=== PATIENT | female | born 1955 | race African-American/Black ===

== ENCOUNTER 2018-07-19 05:49 | Inpatient (IN) | payer OTHER ==
[~2018-07-19] VITALS: Ht 170.2 cm; Wt 98.6 kg
[2018-07-19] VITALS (7 sets, daily range): BP systolic 134–155; BP diastolic 82–100
--- NOTE | ~2018-07-19 | 2DMMODE ---
[facility] [address] [place] [address] 2 D/M-MODE ECHOCARDIOGRAM Name: BRIGHT XIE Room #: 213-P [facility] [place] ..#: [id number] Admission: 07/19/18 Attend Phys: Torrey Watkins, Discharge: Date of : 59 Date of Service: 07/19/18 1601 Report #: [id number] THIS REPORT FOR: //name// APPROVED REPORT Study performed: 07/19/2018 13:06:16 EXAM: Comprehensive 2D, Doppler, and color-flow Echocardiogram Patient Location: Bedside Room #: 213 Status: routine BSA: 2.04 HR: 57 bpm BP: 141/91 mmHg Rhythm: NSR Other Information Study Quality: Adequate Indications Hypertension, elevated troponin, dizzy. 2D Dimensions RVDd: 30.45 mm IVSd: 15.22 (7-11mm) LVOT Diam: 21.87 (18-24mm) LVDd: 43.65 mm PWd: 13.73 (7-11mm) Ascending Ao: 34.05 (22-36mm) LVDs: 27.16 (25-40mm) Aortic Root: 29.76 mm Volumes Left Atrial Volume (Systole) Single Plane 4CH: 63.68 mL Single Plane 2CH: 48.74 mL Aortic Valve AoV Peak Dalton.: 1.80 m/s AO Peak Gr.: 13.64 mmHg LVOT Max P.20 mmHg LVOT Max V: 0.89 m/s SLIME Vmax: 1.86 cm2 Mitral Valve E/A Ratio: 0.8 MV Decel. Time: 207.49 ms MV E Max Dalton.: 0.82 m/s MV A Dalton.: 1.02 m/s [facility] [place] [address] 2 D/M-MODE ECHOCARDIOGRAM Name: BRIGHT XIE Room #: 213-P [facility] [place] [facility].#: [id number] Admission: 07/19/18 Attend Phys: Torrey Watkins, Discharge: Date of : 59 Date of Service: 07/19/18 1601 Report #: [id number] PHT: 60.17 ms IVRT: 96.89 ms Pulmonary Valve PV Peak Dalton.: 0.93 m/s PV Peak Gr.: 3.50 mmHg Tricuspid Valve TR Peak Dalton.: 2.09 m/s RAP Estimate: 5.00 mmHg TR Peak Gr.: 17.48 mmHg PA Pressure: 23.00 mmHg Left Ventricle The left ventricle is normal size. There is normal LV segmental wall motion. Moderate concentric left ventricular hypertrophy. Left ventricular systolic function is normal. LVEF is 65%. Mild diastolic dysfunction is present (impaired relaxation pattern). Right Ventricle The right ventricle is normal size. The right ventricular systolic function is normal. Atria Left atrium is mildly dilated. The right atrium size is normal. Aortic Valve Aortic valve leaflets are mildly thickened and calcified. No aortic regurgitation is present. There is no aortic valvular stenosis. Mitral Valve Mild mitral annular calcification. Trace mitral regurgitation. Tricuspid Valve The tricuspid valve is normal in structure. Trace tricuspid regurgitation. Estimated PAP is 20-25mmHg. Pulmonic Valve The pulmonary valve is normal in structure. Trace pulmonic regurgitation. Great Vessels The aortic root is normal in size. The ascending aorta is normal in size. IVC is normal in size and collapses >50% with inspiration. [facility] [address] [place] [address] 2 D/M-MODE ECHOCARDIOGRAM Name: ROJASBRIGHT E Room #: 213-P [facility] [place] ..#: [id number] Admission: 07/19/18 Attend Phys: Torrey Watkins, Discharge: Date of : 59 Date of Service: 07/19/18 1601 Report #: [id number] Pericardium There is no pericardial effusion. <Conclusion> Left ventricular systolic function is normal. Moderate concentric left ventricular hypertrophy. There is normal LV segmental wall motion. LVEF is 65%. Mild diastolic dysfunction Aortic valve leaflets are mildly thickened and calcified. No aortic regurgitation or stenosis Mild mitral annular calcification. Trace mitral regurgitation. Trace tricuspid regurgitation. Estimated pulmonary artery pressure of 20-25mmHg. There is no pericardial effusion. <ELECTRONICALLY SIGNED> By: Clemente Chawla MD, FACC 07/19/181600 00 00 Clemente Chawla MD, FACC /INF
--- NOTE | ~2018-07-19 | EKG ---
[address] [address] ELECTROCARDIOGRAM REPORT Name: XIEBRIGHT Room #: 170-6 ADM IN M.R.#: [id number] Admission: 07/19/18 Attend Phys: Torrey Watkins MD Discharge: Date of : 59 Report #: [id number] THIS REPORT FOR: //name// [facility] ED Test Date: 2018-07-19 Test Time: 05:54:23 Pat Name: BRIGHT XIE Department: Room: 170 Gender: F Cloth Weigher: Orly AVILA : 1955 Requested By: Dar Kyle Order Number: [id number] MD: Clemente Chawla Measurements Intervals Temple Rate: 64 P: -37 IA: 272 QRS: -13 QRSD: 94 T: -10 QT: 413 QTc: 426 Interpretive Statements Sinus rhythm Prolonged IA interval Left ventricular hypertrophy Borderline T abnormalities, inferior leads Compared to ECG 07/30/2012 18:54:24 No significant change was found Electronically Signed On 07-19-2018 7:36:33 CDT by Clemente Chawla [email or web address] <ELECTRONICALLY SIGNED> By: Clemente Chawla MD, [facility] 07/19/18 0736 [id number] Clemente Chawla MD, [facility] /EPI
[~2018-07-19 05:49] MED LIST: ACETAMINOPHEN650 M5 PO; ACETYLCYST200 MG/1 M PO; CARVEDILOL12.5 MG PO; HYZAAR 100-251 EACH PO; NORCO 5-325 TA1 EACH PO; PRILOSEC40 MG PO
[2018-07-19 06:25] LABS: ABSOLUTE NEUTROPHILS 3.7 thou/uL (1.4-8.2); BASOPHILS 0.8 % (0.0-2.0); EOSINOPHILS 0.7 % (0.0-3.0); HEMATOCRIT 36.9 % (37.0-47.0); HEMOGLOBIN 12.3 gm/dL (12.0-15.0); LYMPHOCYTES 20.9 % (24.0-44.0); MCHC 33.2 g/dL (28.0-37.0); MCV 93.4 fL (80.0-100.0); MONOCYTES 3.8 % (1.0-8.0); PLATELET COUNT 380 thou/uL (150-400); POLYS 73.8 % (36.0-66.0); RBC 3.95 mil/uL (4.20-5.00); RDW 12.8 % (10.5-14.5); WBC 5.1 thou/uL (4.0-11.0)
[2018-07-19 06:28] LABS: CALCIUM 9.9 mg/dL (8.5-10.1); CREATININE 1.2 mg/dL (0.6-1.0); POTASSIUM 3.4 mmol/L (3.5-5.1)
[2018-07-19 06:37] LABS: ALBUMIN 3.2 g/dL (3.4-5.0); MAGNESIUM 1.7 mg/dL (1.8-2.4); TOTAL BILIRUBIN 0.8 mg/dL (<0.1-1.0); TOTAL PROTEIN 7.9 g/dL (6.4-8.2); TROPONIN-I 0.11 ng/mL (<0.06)
[2018-07-19 08:27] LABS: TSH 1.114 uIU/mL (0.358-3.740)
[2018-07-20 00:38] LABS: URINE BILIRUBIN NEGATIVE (Negative); URINE BLOOD NEGATIVE (Negative); URINE CLARITY CLEAR; URINE COLOR YELLOW; URINE GLUCOSE-RANDOM* NEGATIVE (Negative); URINE KETONES NEGATIVE (Negative); URINE LEUKOCYTES-REFLEX NEGATIVE (Negative); URINE NITRITE-REFLEX NEGATIVE (Negative); URINE PROTEIN (DIPSTICK) NEGATIVE (Negative); URINE SPECIFIC GRAVITY 1.015 (1.005-1.035)
[2018-07-20 04:49] VITALS: BP 133/76
[2018-07-20 07:44] VITALS: BP 164/98
[2018-07-20] MEDS ORDERED: ANTIVERT25 MG PO (10:26)
[2018-07-20] MEDS ORDERED: LORATIDINE 10 M10 M1 PO (10:26)
[2018-07-20 11:27] VITALS: BP 164/98
== END 2018-07-20 11:40 | disposition home or self-care (01) | DRG 149 ==
LOC: ER 05:49 → EROBS 07:27 → 2N 08:28 → ENTRNSPT 07-20 11:32 → EDTRNSPTSTS 07-20 11:37 → 2N 07-20 11:40
PROVIDERS: Emergency Medicine; Internal Medicine
DX: H81.10 Benign paroxysmal vertigo, unspecified ear (principal); N17.9 Acute kidney failure, unspecified; I10 Essential (primary) hypertension; J30.2 Other seasonal allergic rhinitis; E87.6 Hypokalemia; E83.42 Hypomagnesemia; K21.9 Gastro-esophageal reflux disease without esophagitis; R00.1 Bradycardia, unspecified; Z90.710 Acquired absence of both cervix and uterus; Z79.899 Other long term (current) drug therapy
CPT/HCPCS: 10081

== ENCOUNTER 2019-03-28 16:06 | Emergency (ER) | payer OTHER ==
[~2019-03-28] VITALS: Ht 170.2 cm; Wt 89.4 kg
[~2019-03-28 16:06] MED LIST changes: +ANTIVERT25 MG PO; +LORATIDINE 10 M10 M1 PO
[2019-03-28 16:09] VITALS: BP 124/84
[2019-03-28] MEDS ORDERED: PREDNISONE 20 M20 MG PO (16:44)
== END 2019-03-28 16:45 | disposition home or self-care (01) ==
LOC: ER 16:06
DX: L25.9 Unspecified contact dermatitis, unspecified cause (principal); R19.7 Diarrhea, unspecified; L29.9 Pruritus, unspecified; I10 Essential (primary) hypertension; Z90.710 Acquired absence of both cervix and uterus

== ENCOUNTER 2019-05-21 14:37 | Emergency (ER) | payer OTHER ==
[~2019-05-21] VITALS: Ht 167.6 cm; Wt 87.5 kg
[~2019-05-21 14:37] MED LIST changes: +PREDNISONE 20 M20 MG PO
[2019-05-21 16:10] VITALS: BP 169/90
[2019-05-21] MEDS ORDERED: NAPROSYN500 MG PO (16:21)
== END 2019-05-21 17:09 | disposition home or self-care (01) ==
LOC: ER 14:37
DX: S93.691A Other sprain of right foot, initial encounter (principal); S93.491A Sprain of other ligament of right ankle, initial encounter; I10 Essential (primary) hypertension; M32.9 Systemic lupus erythematosus, unspecified; Z90.710 Acquired absence of both cervix and uterus; W18.31XA Fall on same level due to stepping on an object, initial encounter; Y93.89 Activity, other specified; Y92.89 Other specified places as the place of occurrence of the external cause; Y99.8 Other external cause status